=== PATIENT | female | born 1950 ===

== ENCOUNTER 2018-11-23 06:39 | Day surgery (SDC) | payer OTHER ==
[~2018-11-23 06:39] MED LIST: CALTRATE 600+D1 EACH PO; CETRIZINE PO; DULOXETINE HCL40 MG PO; FLONASE16 GM; IRBESARTAN-HCT1 EACH PO; LYRICA225 MG PO; NORVASC2.5 M1 PO; TERAZOSIN HCL2 M1 PO; VITAMIN D34000 UNIT PO; [UNRECOGNIZED DRUG - OTHER] PO
[2018-11-23] MEDS ORDERED: PERCOCET 5-3251 EACH PO (11:13)
== END 2018-11-23 14:15 | disposition home or self-care (01) ==
LOC: CIR.AMB 06:39 → EDBD 11:30 → CIR.AMB 14:15
DX: D35.1 Benign neoplasm of parathyroid gland (principal)

== ENCOUNTER 2020-09-10 15:52 | Emergency (ER) | payer OTHER ==
[~2020-09-10] VITALS: Ht 154.9 cm; Wt 88.5 kg
[~2020-09-10 15:52] MED LIST changes: +PERCOCET 5-3251 EACH PO
[2020-09-10] MEDS ORDERED: [UNRECOGNIZED DRUG - OTHER] (16:12)
[2020-09-10] MEDS ORDERED: ATORVASTATIN CA10 MG (16:13)
[2020-09-10] MEDS ORDERED: TERAZOSIN HCL5 MG (16:13)
[2020-09-10] MEDS ORDERED: INDAPAMIDE1.25 MG (16:13)
[2020-09-10] MEDS ORDERED: SYNTHROID (16:13)
[2020-09-10] MEDS ORDERED: TRILEPTAL300 MG (16:14)
== END 2020-09-10 22:47 | disposition home or self-care (01) ==
LOC: ER 15:52 → CPU-OBS 16:07 → ER 16:07
DX: R07.89 Other chest pain (principal); R53.81 Other malaise; Z03.818 Encounter for observation for suspected exposure to other biological agents ruled out